=== PATIENT | male | born 1985 | race Caucasian/White ===

== ENCOUNTER 2019-04-14 08:49 | Emergency (ER) | payer BC ==
[~2019-04-14] VITALS: Wt 99.8 kg
[~2019-04-14 08:49] MED LIST: INDOMETHACIN50 MG PO
[2019-04-14] MEDS ORDERED: COLCHICINE0.6 M1 PO (10:23)
[2019-04-14] MEDS ORDERED: Motrin,Rufen800 MG PO (10:23)
== END 2019-04-14 10:36 | disposition home or self-care (01) ==
LOC: ED 08:49
DX: M10.9 Gout, unspecified (principal)